=== PATIENT | male | born 1980 | race African-American/Black ===

== ENCOUNTER 2018-07-05 13:13 | Emergency (ER) | payer OTHER ==
[~2018-07-05] VITALS: Ht 185.4 cm; Wt 93.0 kg
[2018-07-05] MEDS ORDERED: VENTOLIN HFA18 GM INH (13:20)
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
--- NOTE | 2018-07-05 13:43 | NUR ---
ED Nurse Note: Lidoderm patch placed on the right shoulder as pt requested.
[2018-07-05] MEDS ORDERED: Methocarbamol 500mg tab ORAL ONE (13:45)
[2018-07-05] MEDS ORDERED: Ketorolac 30mg Inj IM ONE (13:45)
--- NOTE | 2018-07-05 13:50 | NUR ---
ED Nurse Note: patient went down to xray
--- NOTE | 2018-07-05 14:29 | NUR ---
ED Nurse Note: patient came back from xray
[2018-07-05] MEDS ORDERED: ROBAXIN500 MG PO (14:59)
[2018-07-05] MEDS ORDERED: IBUPROFEN600 MG ORAL (14:59)
[2018-07-05] MEDS ORDERED: LIDOCAINE700 M1 TP (14:59)
[2018-07-05 15:00] VITALS: BP 139/83
--- NOTE | 2018-07-05 15:05 | Diagnostic Imaging Report ---
Indication: Pain Technique: One view of the pelvis, 2 views of the right hip Comparison: none Findings: No acute fractures. No dislocations. The joint spaces are preserved. Impression: Negative
[2018-07-05 15:06] VITALS: BP 139/83
--- NOTE | 2018-07-05 15:06 | Diagnostic Imaging Report ---
Indication: Chest pain Technique: One view of the chest Comparison: none Findings: Lungs and pleural spaces are clear. Heart size is normal. No significant interim change Impression: No acute process
--- NOTE | 2018-07-05 15:07 | Diagnostic Imaging Report ---
Indication: Right shoulder pain Technique: 3 views of the right shoulder Comparison: None Findings: No acute fractures or dislocations. Joint spaces are preserved. Impression: Negative
--- NOTE | 2018-07-05 15:07 | NUR ---
ER DISCHARGE NOTE: Patient is cleared to be discharged per ERMD, pt is aox4, on room air, with stable vital signs. pt was given dc and prescription instructions, pt was able to verbalize understanding, pt id band removed without complications. pt is able to ambulate with steady gait. pt took all belongings.
== END 2018-07-05 15:06 | disposition home or self-care (01) ==
LOC: EMR 13:50
DX: M25.811 Other specified joint disorders, right shoulder (principal); S20.212A Contusion of left front wall of thorax, initial encounter; M25.551 Pain in right hip; V43.52XA Car driver injured in collision with other type car in traffic accident, initial encounter; Y92.410 Unspecified street and highway as the place of occurrence of the external cause; J45.909 Unspecified asthma, uncomplicated
CPT/HCPCS: 71045; 72170; 73030; 73502; 96372; 99284; J1885